=== PATIENT | female | born 1980 | race Asian ===

== ENCOUNTER 2023-04-14 08:03 | Outpatient (CLI) | payer BC | END 2023-04-14 08:04 | disposition home or self-care (01) | LOC: CSHLAB 08:03 | PROVIDERS: ATTEND Student in an Organized Health Care Education/Training Program | DX: Z01.812 Encounter for preprocedural laboratory examination (principal); D25.9 Leiomyoma of uterus, unspecified | CPT/HCPCS: 84703; 85027; 86850; 86900; 86901 ==

== ENCOUNTER 2023-04-28 11:20 | Outpatient (CLI) | payer BC | END 2023-04-28 11:21 | disposition home or self-care (01) | LOC: CSHLAB 11:20 | PROVIDERS: ATTEND Student in an Organized Health Care Education/Training Program | DX: Z01.812 Encounter for preprocedural laboratory examination (principal); D25.9 Leiomyoma of uterus, unspecified; Z53.9 Procedure and treatment not carried out, unspecified reason | CPT/HCPCS: 84703; 85027; 86850; 86900; 86901 ==